=== PATIENT | male | born 1990 | race Caucasian/White ===

== ENCOUNTER 2016-07-06 23:23 | Emergency (ER) | payer BC ==
[2016-07-07 02:32] LABS: BASOPHIL % 0.5 % (0-2); PLATELET COUNT 202 x10^3mcL (130-400)
[2016-07-07 02:40] LABS: CALCIUM 8.5 mg/dL (8.5-10.1); CARBON DIOXIDE 30.6 mmol/L (21-32); CHLORIDE SERUM 99 mmol/L (98-107); CREATININE SERUM 0.8 mg/dL (0.7-1.3); GFR1 > 60 mL/min; GLUCOSE SERUM 253 mg/dL (74-106); POTASSIUM SERUM 3.7 mmol/L (3.5-5.1); SODIUM SERUM 137 mmol/L (136-145)
[2016-07-07 02:42] LABS: ALBUMIN 3.9 g/dL (3.4-5.0); ALKALINE PHOSPHATASE 113 U/L (46-116); ALT/SGPT 49 U/L (16-63); AST/SGOT 24 U/L (15-37); BILIRUBIN TOTAL 0.59 mg/dL (0.20-1.00); TOTAL PROTEIN, SERUM 7.1 g/dL (6.4-8.2)
[2016-07-07 03:35] VITALS: BP 127/74
== END 2016-07-07 03:35 | disposition home or self-care (01) ==
LOC: ED 23:23
PROVIDERS: Emergency Medicine
DX: M79.642 Pain in left hand (principal); R60.0 Localized edema; R03.0 Elevated blood-pressure reading, without diagnosis of hypertension; E11.9 Type 2 diabetes mellitus without complications; Z79.4 Long term (current) use of insulin
CPT/HCPCS: Q0092

== ENCOUNTER 2018-06-30 18:25 | Emergency (ER) | payer BC ==
[~2018-06-30] VITALS: Ht 167.6 cm; Wt 86.2 kg
[2018-06-30 18:27] VITALS: Ht 167.6 cm; Wt 86.2 kg
[2018-06-30 19:26] VITALS: BP 136/89
== END 2018-06-30 19:26 | disposition home or self-care (01) ==
LOC: ED 18:25
DX: E10.8 Type 1 diabetes mellitus with unspecified complications (principal); Z76.0 Encounter for issue of repeat prescription
CPT/HCPCS: 82962